=== PATIENT | male | born 1955 | race Caucasian/White ===

== ENCOUNTER 2017-08-24 08:41 | Inpatient (IN) | payer BC ==
[~2017-08-24] VITALS: Ht 177.8 cm; Wt 126.4 kg
[~2017-08-24 08:41] MED LIST: ALLOPURINOL100 MG PO; NO HOME MEDICATIONS
[2017-11-16] VITALS (12 sets, daily range): BP systolic 99–127; BP diastolic 58–78; PULSE 59–87; TEMP 97–98.7
[2017-11-16] MEDS ORDERED: FLOMAX 0.40.4 MG/CAP PO (01:58)
[2017-11-16] MEDS ORDERED: ZYLOPRIM 300MG300 MG PO (01:58)
[2017-11-16] MEDS ORDERED: PRILOSEC 20MG20 MG PO (02:01)
[2017-11-16] MEDS ORDERED: BENICAR HCT 12.1 TAB PO (02:02)
[2017-11-17 04:57] VITALS: BP 95/59; PULSE 66; TEMP 98.9
[2017-11-17 06:54] LABS: HEMATOCRIT 34.7 % (42.0-52.0); HEMOGLOBIN 11.5 g/dl (13.5-18.0)
[2017-11-17 09:26] VITALS: BP 106/65; PULSE 72; TEMP 97.9
[2017-11-17 14:38] VITALS: BP 91/51; PULSE 73; TEMP 98
[2017-11-17 17:20] VITALS: BP 99/61; PULSE 78; TEMP 98.3
[2017-11-17 20:20] VITALS: BP 112/59; PULSE 84; TEMP 97.7
[2017-11-18 04:53] VITALS: BP 98/54; PULSE 78; TEMP 98.2
[2017-11-18] MEDS ORDERED: XARELTO10 MG PO (06:52)
[2017-11-18] MEDS ORDERED: NORCO 325 MG-7.1 TAB PO (06:53)
[2017-11-18] MEDS ORDERED: ROXICODONE 55 MG/TAB PO (06:54)
[2017-11-18 07:51] VITALS: BP 115/67; PULSE 81; TEMP 97.4
[2017-11-18 11:26] VITALS: BP 120/62; BP 1220/62; PULSE 79; TEMP 98.4
[2017-11-18 12:48] VITALS: BP 134/79; PULSE 80
[2017-11-18 13:30] LABS: BASO # 0.1 (0.0-0.2); BASO % 0.4 % (0.0-2.0); EOS % 0.2 % (0-4.0); GRAN # 9.9 (1.4-6.5); GRAN % 81.1 % (42.2-75.2); HEMATOCRIT 39.3 % (42.0-52.0); HEMOGLOBIN 13.2 g/dl (13.5-18.0); LYMPH # 1.1 (1.2-3.4); LYMPH % 8.6 % (20.0-51.0); MEAN CELL VOLUME 90 fl (80.0-100.0); MEAN CORPUSCULAR HEMOGLOBIN 30 pg (27.0-31.0); MEAN CORPUSCULAR HGB CONC 34 g/dl (33.0-37.0); MEAN PLATELET VOLUME 9.9 fl (7.4-10.4); MONO # 1.2 (0.1-0.6); MONO % 9.4 % (1.7-9.3); PLATELET COUNT 212 K/mm3 (130-400); RED BLOOD COUNT 4.39 M/mm3 (4.20-5.60); REDCELL DISTRIBUTION WIDTH-CV 17.3 % (11.5-14.5)
[2017-11-18 13:37] LABS: ALANINE AMINOTRANSFERASE 31 U/L (21-72); ALBUMIN 3.4 gm/dL (3.5-5.0); ALKALINE PHOSPHATASE 95 U/L (50-136); ANION GAP 10 mmol/L (7-16); AST,SGOT 28 U/L (15-37); BLOOD UREA NITROGEN 23 mg/dL (9-20); CALCIUM 8.9 mg/dL (8.4-10.2); CARBON DIOXIDE 28 mmol/L (22-30); CHLORIDE 100 mmol/L (98-107); CREATININE, serum 0.94 mg/dL (0.66-1.25); GLUCOSE 148 mg/dL (74-106); LIPASE 105 U/L (23-300); POTASSIUM 3.8 mmol/L (3.4-5.0); SODIUM 138 mmol/L (137-145); TOTAL PROTEIN 6.9 gm/dL (6.4-8.2)
[2017-11-18 13:49] LABS: TROPONIN-I < 0.012 ng/mL (0.000-0.034)
[2017-11-18 16:10] LABS: ARTERIAL BLD GAS O2 SATURATION 91.9 % (92-100); ARTERIAL BLD GAS TCO2 CT 26.2; ARTERIAL BLOOD GAS BASE EXCESS 0.5 (-2-2); ARTERIAL BLOOD GAS PCO2 39.7 mmHg (35-45); ARTERIAL BLOOD GAS PO2 59.5 mmHg (80-100); ARTERIAL BLOOD GAS pH 7.42 (7.35-7.45)
[2017-11-18 16:12] VITALS: BP 124/74; PULSE 85; TEMP 98.4
[2017-11-18 22:01] VITALS: BP 142/84; PULSE 99; TEMP 98.6
[2017-11-19 01:27] VITALS: BP 138/80; PULSE 104; TEMP 98.6
[2017-11-19 05:22] VITALS: BP 143/88; PULSE 104; TEMP 98.6
[2017-11-19 07:36] LABS: BASO % 0.2 % (0.0-2.0); EOS # 0.1 (0.0-0.7); EOS % 0.4 % (0-4.0); GRAN # 9.6 (1.4-6.5); GRAN % 75.4 % (42.2-75.2); HEMOGLOBIN 12.5 g/dl (13.5-18.0); LYMPH # 1.6 (1.2-3.4); LYMPH % 12.8 % (20.0-51.0); MEAN CELL VOLUME 89 fl (80.0-100.0); MEAN CORPUSCULAR HEMOGLOBIN 30 pg (27.0-31.0); MEAN CORPUSCULAR HGB CONC 34 g/dl (33.0-37.0); MEAN PLATELET VOLUME 10.4 fl (7.4-10.4); MONO # 1.4 (0.1-0.6); MONO % 10.7 % (1.7-9.3); PLATELET COUNT 217 K/mm3 (130-400); RED BLOOD COUNT 4.18 M/mm3 (4.20-5.60); REDCELL DISTRIBUTION WIDTH-CV 17.4 % (11.5-14.5)
[2017-11-19 07:47] LABS: CALCIUM 8.6 mg/dL (8.4-10.2); CREATININE, serum 0.79 mg/dL (0.66-1.25)
[2017-11-19 07:48] LABS: POTASSIUM 3.5 mmol/L (3.4-5.0)
[2017-11-19 08:00] VITALS: BP 127/73; PULSE 88; TEMP 98.7
[2017-11-19 13:38] VITALS: BP 148/78; PULSE 85; TEMP 99.1
[2017-11-19 17:50] VITALS: BP 131/89; PULSE 92; TEMP 98.4
[2017-11-19 20:19] VITALS: BP 141/86; PULSE 93; TEMP 98.3
[2017-11-20 00:26] VITALS: BP 133/76; PULSE 100; TEMP 98.6
[2017-11-20 04:46] VITALS: BP 138/77; PULSE 84; TEMP 98.1
[2017-11-20 09:15] LABS: BASO % 0.3 % (0.0-2.0); EOS # 0.1 (0.0-0.7); EOS % 0.6 % (0-4.0); GRAN # 9.3 (1.4-6.5); GRAN % 76.8 % (42.2-75.2); HEMOGLOBIN 12.4 g/dl (13.5-18.0); LYMPH # 1.5 (1.2-3.4); LYMPH % 12.2 % (20.0-51.0); MEAN CELL VOLUME 89 fl (80.0-100.0); MEAN CORPUSCULAR HEMOGLOBIN 30 pg (27.0-31.0); MEAN CORPUSCULAR HGB CONC 34 g/dl (33.0-37.0); MEAN PLATELET VOLUME 10.1 fl (7.4-10.4); MONO # 1.2 (0.1-0.6); MONO % 9.6 % (1.7-9.3); PLATELET COUNT 223 K/mm3 (130-400); RED BLOOD COUNT 4.12 M/mm3 (4.20-5.60); REDCELL DISTRIBUTION WIDTH-CV 17.1 % (11.5-14.5)
[2017-11-20 09:17] LABS: HEMATOCRIT 36.6 % (42.0-52.0)
[2017-11-20 09:28] LABS: CALCIUM 8.6 mg/dL (8.4-10.2); CREATININE, serum 0.76 mg/dL (0.66-1.25); POTASSIUM 3.6 mmol/L (3.4-5.0)
[2017-11-20 09:43] VITALS: BP 123/82; PULSE 86; TEMP 98
[2017-11-20 13:46] VITALS: BP 131/75; PULSE 86; TEMP 97.8
[2017-11-20 17:41] VITALS: BP 139/81; PULSE 86; TEMP 98.1
[2017-11-20 20:00] VITALS: BP 138/80; PULSE 89; TEMP 98.4
[2017-11-21 00:08] VITALS: BP 132/78; PULSE 74; TEMP 98.4
[2017-11-21 04:59] VITALS: BP 141/84; PULSE 91; TEMP 98.5
[2017-11-21 06:37] LABS: BASO % 0.2 % (0.0-2.0); EOS # 0.1 (0.0-0.7); EOS % 1.1 % (0-4.0); GRAN # 8.1 (1.4-6.5); GRAN % 75.5 % (42.2-75.2); LYMPH # 1.5 (1.2-3.4); LYMPH % 14.2 % (20.0-51.0); MEAN CELL VOLUME 88 fl (80.0-100.0); MEAN CORPUSCULAR HGB CONC 34 g/dl (33.0-37.0); MONO # 0.9 (0.1-0.6); MONO % 8.6 % (1.7-9.3); PLATELET COUNT 220 K/mm3 (130-400); RED BLOOD COUNT 3.88 M/mm3 (4.20-5.60); REDCELL DISTRIBUTION WIDTH-CV 16.5 % (11.5-14.5)
[2017-11-21 06:39] LABS: HEMATOCRIT 34.2 % (42.0-52.0); HEMOGLOBIN 11.6 g/dl (13.5-18.0); MEAN CORPUSCULAR HEMOGLOBIN 30 pg (27.0-31.0)
[2017-11-21 06:44] LABS: CALCIUM 8.2 mg/dL (8.4-10.2); CREATININE, serum 0.7 mg/dL (0.66-1.25); POTASSIUM 3.3 mmol/L (3.4-5.0)
[2017-11-21 08:38] VITALS: BP 140/81; PULSE 87; TEMP 98.7
[2017-11-21 11:41] VITALS: BP 139/82; PULSE 83; TEMP 98.7
== END 2017-11-21 12:30 | disposition home or self-care (01) | DRG 470 ==
LOC: SURG 11-16 05:19 → JCC 11-16 07:30 → SURG 11-21 12:30
PROVIDERS: Internal Medicine; Orthopaedic Surgery; Physician Assistant
PROC: 0SRC0J9 Replacement of Right Knee Joint with Synthetic Substitute, Cemented, Open Approach (ICD-10-PCS; principal; 2017-11-16 07:30)
DX: M17.11 Unilateral primary osteoarthritis, right knee (principal); Z68.41 Body mass index [BMI] 40.0-44.9, adult; E87.2 Acidosis; K56.7 Ileus, unspecified; I10 Essential (primary) hypertension; E66.01 Morbid (severe) obesity due to excess calories; Z85.828 Personal history of other malignant neoplasm of skin; Z98.84 Bariatric surgery status; E87.6 Hypokalemia
CPT/HCPCS: 99222; 99232-AI; A4314; A9284; C1713; C1776; J0690; J1100; J1650; J1885; J2250; J2270; J2405; J2704; J7030; J7120; Q9967

== ENCOUNTER → 2017-11-09 | Outpatient (CLI) | payer BC ==
[2017-11-09 11:59] LABS: HIV 1/2 Antibodies Non-Reactive; HIV-1p24 Antigen Non-Reactive
== END ==
LOC: COL.LAB 10:45
PROVIDERS: Orthopaedic Surgery
DX: Z01.812 Encounter for preprocedural laboratory examination (principal); M17.11 Unilateral primary osteoarthritis, right knee

== ENCOUNTER → 2017-12-05 | Outpatient (CLI) | payer BC ==
[~2017-12-05] VITALS: Ht 175.3 cm; Wt 127.7 kg
[~2017-12-05] MED LIST changes: +BENICAR HCT 12.1 TAB PO; +FLOMAX 0.40.4 MG/CAP PO; +NORCO 325 MG-7.1 TAB PO; +PRILOSEC 20MG20 MG PO; +ROXICODONE 55 MG/TAB PO; +XARELTO10 MG PO; +ZYLOPRIM 300MG300 MG PO
[2017-12-05 12:49] VITALS: BP 100/66; PULSE 68
== END ==
LOC: LIGHT 12:33
DX: Z98.84 Bariatric surgery status (principal); M15.9 Polyosteoarthritis, unspecified; M10.9 Gout, unspecified; E66.01 Morbid (severe) obesity due to excess calories; Z68.41 Body mass index [BMI] 40.0-44.9, adult; Z71.3 Dietary counseling and surveillance
CPT/HCPCS: G0463

== ENCOUNTER → 2019-02-12 | Outpatient (CLI) | payer BC ==
[~2019-02-12] VITALS: Ht 175.3 cm; Wt 149.7 kg
[2019-02-12 15:14] VITALS: BP 124/74; PULSE 88
== END ==
LOC: LIGHT 15:00
DX: M15.9 Polyosteoarthritis, unspecified (principal); Z98.84 Bariatric surgery status; E66.01 Morbid (severe) obesity due to excess calories; Z68.42 Body mass index [BMI] 45.0-49.9, adult; Z71.3 Dietary counseling and surveillance
CPT/HCPCS: G0463

== ENCOUNTER → 2019-12-31 | Outpatient (CLI) | payer BC ==
[~2019-12-31] VITALS: Ht 175.3 cm; Wt 126.6 kg
[~2019-12-31] MED LIST changes: +BENICAR 20MG TA20 MG PO; -BENICAR HCT 12.1 TAB PO
[2019-12-31 16:23] VITALS: BP 124/70; PULSE 72
== END ==
LOC: LIGHT 11:54
DX: E66.01 Morbid (severe) obesity due to excess calories (principal); Z98.84 Bariatric surgery status; Z68.41 Body mass index [BMI] 40.0-44.9, adult
CPT/HCPCS: G0463

== ENCOUNTER → 2020-06-02 | Outpatient (CLI) | payer BC ==
[~2020-06-02] VITALS: Ht 175.3 cm; Wt 117.7 kg
[2020-06-02 14:39] VITALS: BP 110/64; PULSE 76
== END ==
LOC: LIGHT 14:32
DX: E66.01 Morbid (severe) obesity due to excess calories (principal); Z68.38 Body mass index [BMI] 38.0-38.9, adult; Z98.84 Bariatric surgery status
CPT/HCPCS: G0463

== ENCOUNTER → 2022-02-24 | Outpatient (CLI) | payer MEDICARE, BC | LOC: COL.RAD 02-19 10:30 | DX: E04.9 Nontoxic goiter, unspecified (principal) ==